=== PATIENT | female | born 1945 | race Two or more races ===

== ENCOUNTER 2017-11-11 11:50 | Emergency (ER) | payer OTHER ==
[~2017-11-11] VITALS: Ht 157.5 cm; Wt 86.2 kg
[~2017-11-11 11:50] MED LIST: CIPRO500 MG PO; FLAGYL500MG PO; FORTAMET500 MG; METFORMIN HCL500 M1 PO; SIMVASTATIN5 MG; SYNTHROID50 MCG PO; VASOTEC20 MG PO
== END 2017-11-11 16:01 | disposition home or self-care (01) ==
LOC: ER 11:50
DX: S40.011A Contusion of right shoulder, initial encounter (principal); S40.021A Contusion of right upper arm, initial encounter; W18.09XA Striking against other object with subsequent fall, initial encounter; Y93.89 Activity, other specified; Y92.488 Other paved roadways as the place of occurrence of the external cause; Y99.8 Other external cause status

== ENCOUNTER 2017-11-19 11:59 | Outpatient (CLI) | payer OTHER | END 2017-11-19 15:17 | disposition home or self-care (01) | LOC: MRI 11:59 | DX: M25.511 Pain in right shoulder (principal) | CPT/HCPCS: 73221 ==

== ENCOUNTER 2018-01-13 00:10 | Inpatient (IN) | payer OTHER ==
[~2018-01-13] VITALS: Ht 157.5 cm; Wt 87.5 kg
== END 2018-01-17 13:52 | disposition home or self-care (01) | DRG 390 ==
LOC: ER 00:10 → SURH 08:25 → SEC-K 08:25 → SURH 10:53
PROC: BW25ZZZ Computerized Tomography (CT Scan) of Chest, Abdomen and Pelvis (ICD-10-PCS; principal; 2018-01-13)
DX: K56.690 Other partial intestinal obstruction (principal); I10 Essential (primary) hypertension; E11.9 Type 2 diabetes mellitus without complications; E03.8 Other specified hypothyroidism; E86.0 Dehydration

== ENCOUNTER 2018-04-29 07:22 | Outpatient (CLI) | payer OTHER | END 2018-04-29 07:26 | disposition home or self-care (01) | LOC: RX STUDY 07:22 | DX: K56.699 Other intestinal obstruction unspecified as to partial versus complete obstruction (principal) ==

== ENCOUNTER → 2018-05-23 | Outpatient (CLI) | payer OTHER | END | disposition home or self-care (01) | LOC: NUCLEAR 09:00 | DX: M79.89 Other specified soft tissue disorders (principal) ==

== ENCOUNTER 2018-07-17 07:27 | Outpatient (CLI) | payer OTHER | END 2018-07-17 07:31 | disposition home or self-care (01) | LOC: TOM 07:27 | DX: R19.5 Other fecal abnormalities (principal); K63.5 Polyp of colon ==

== ENCOUNTER 2018-08-29 11:37 | Inpatient (IN) | payer OTHER ==
[~2018-08-29] VITALS: Ht 149.9 cm; Wt 88.0 kg
== END 2018-09-03 08:41 | disposition home or self-care (01) | DRG 392 ==
LOC: ER 11:37 → MEDJ 08-30 08:48
PROVIDERS: ADMIT Internal Medicine
DX: K57.32 Diverticulitis of large intestine without perforation or abscess without bleeding (principal); E78.00 Pure hypercholesterolemia, unspecified; E86.0 Dehydration; I10 Essential (primary) hypertension; G47.33 Obstructive sleep apnea (adult) (pediatric); E03.8 Other specified hypothyroidism; E11.9 Type 2 diabetes mellitus without complications; K29.60 Other gastritis without bleeding; K76.0 Fatty (change of) liver, not elsewhere classified

== ENCOUNTER 2019-01-26 14:12 | Outpatient (CLI) | payer OTHER | END 2019-01-26 14:14 | disposition home or self-care (01) | LOC: RAD 14:12 | DX: M54.2 Cervicalgia (principal); M54.6 Pain in thoracic spine ==

== ENCOUNTER 2019-02-23 13:23 | Outpatient (CLI) | payer OTHER | END 2019-02-23 13:27 | disposition home or self-care (01) | LOC: MAMO-SONO 13:23 | DX: Z12.31 Encounter for screening mammogram for malignant neoplasm of breast (principal); Z87.898 Personal history of other specified conditions ==

== ENCOUNTER 2019-02-23 14:08 | Outpatient (CLI) | payer OTHER | END 2019-02-23 17:00 | disposition home or self-care (01) | LOC: MRI 14:08 | DX: M54.12 Radiculopathy, cervical region (principal) | CPT/HCPCS: 72141 ==

== ENCOUNTER 2022-01-26 02:07 | Inpatient (IN) | payer OTHER ==
[~2022-01-26] VITALS: Ht 154.9 cm; Wt 86.2 kg
== END 2022-01-29 22:04 | disposition home or self-care (01) | DRG 392 ==
LOC: ER 02:07 → SEC-K 09:17 → MEDJ 09:17
PROVIDERS: ADMIT Internal Medicine; ATTEND Internal Medicine
PROC: BW21YZZ Computerized Tomography (CT Scan) of Abdomen and Pelvis using Other Contrast (ICD-10-PCS; principal; 2022-01-26)
DX: K57.32 Diverticulitis of large intestine without perforation or abscess without bleeding (principal); R10.32 Left lower quadrant pain; I10 Essential (primary) hypertension; E11.9 Type 2 diabetes mellitus without complications; Z79.4 Long term (current) use of insulin; E03.9 Hypothyroidism, unspecified

== ENCOUNTER 2022-10-16 09:57 | Outpatient (CLI) | payer OTHER | END 2022-10-16 10:07 | disposition home or self-care (01) | LOC: MAMO-SONO 09:57 | PROVIDERS: ATTEND Internal Medicine | DX: Z12.31 Encounter for screening mammogram for malignant neoplasm of breast (principal) ==

== ENCOUNTER 2022-10-16 10:55 | Outpatient (CLI) | payer OTHER | END 2022-10-16 10:56 | disposition home or self-care (01) | LOC: NUCLEAR 10:55 | PROVIDERS: ATTEND Internal Medicine | DX: M85.80 Other specified disorders of bone density and structure, unspecified site (principal) ==

== ENCOUNTER 2023-04-30 08:01 | Outpatient (CLI) | payer OTHER | END 2023-04-30 08:10 | disposition home or self-care (01) | LOC: SONOGRAMA 08:01 | PROVIDERS: ATTEND Internal Medicine Nephrology | DX: N13.8 Other obstructive and reflux uropathy (principal); I10 Essential (primary) hypertension; Z91.018 Allergy to other foods ==

== ENCOUNTER 2023-07-15 14:15 | Outpatient (CLI) | payer OTHER ==
[~2023-07-15 14:15] MED LIST changes: +SYNTHROID50 MCG; +VASOTEC20 MG
== END 2023-07-15 14:22 | disposition home or self-care (01) ==
LOC: MRI 14:15
DX: M25.561 Pain in right knee (principal)
CPT/HCPCS: 73718

== ENCOUNTER → 2023-07-23 09:10 | Outpatient (CLI) | payer OTHER | END | disposition home or self-care (01) | LOC: NUCLEAR 09:10 | PROVIDERS: ATTEND Internal Medicine | DX: M79.604 Pain in right leg (principal) ==

== ENCOUNTER 2023-12-27 14:27 | Outpatient (CLI) | payer OTHER ==
[~2023-12-27 14:27] MED LIST changes: +GABAPENTIN100 M2 PO
== END 2023-12-27 14:29 | disposition home or self-care (01) ==
LOC: RAD 14:27
PROVIDERS: ATTEND Physical Medicine & Rehabilitation
DX: M25.551 Pain in right hip (principal)

== ENCOUNTER 2024-01-08 12:42 | Outpatient (CLI) | payer OTHER | END 2024-01-08 12:58 | disposition home or self-care (01) | LOC: MRI 12:42 | PROVIDERS: ATTEND Physical Medicine & Rehabilitation | DX: M54.50 Low back pain, unspecified (principal) | CPT/HCPCS: 72148 ==

== ENCOUNTER → 2024-04-02 08:18 | Outpatient (CLI) | payer OTHER | END | disposition home or self-care (01) | LOC: NUCLEAR 08:18 | PROVIDERS: ATTEND Internal Medicine | DX: I87.2 Venous insufficiency (chronic) (peripheral) (principal); M79.605 Pain in left leg ==

== ENCOUNTER 2024-09-11 08:46 | Outpatient (CLI) | payer OTHER | END 2024-09-11 08:48 | disposition home or self-care (01) | LOC: TOM 08:46 | PROVIDERS: ATTEND Internal Medicine Gastroenterology | DX: K57.30 Diverticulosis of large intestine without perforation or abscess without bleeding (principal); K56.600 Partial intestinal obstruction, unspecified as to cause; Z86.0100 Personal history of colon polyps, unspecified ==

== ENCOUNTER → 2024-12-04 13:49 | Outpatient (CLI) | payer OTHER | END | disposition home or self-care (01) | LOC: RAD 13:49 | PROVIDERS: ATTEND Internal Medicine | DX: M54.9 Dorsalgia, unspecified (principal); M54.50 Low back pain, unspecified; M54.2 Cervicalgia ==

== ENCOUNTER 2024-12-08 12:10 | Outpatient (CLI) | payer OTHER | END 2024-12-08 12:17 | disposition home or self-care (01) | LOC: MAMO-SONO 12:10 | PROVIDERS: ATTEND Internal Medicine | DX: Z12.31 Encounter for screening mammogram for malignant neoplasm of breast (principal) ==

== ENCOUNTER 2024-12-28 11:10 | Outpatient (CLI) | payer OTHER | END 2024-12-28 11:12 | disposition home or self-care (01) | LOC: NUCLEAR 11:10 | PROVIDERS: ATTEND Internal Medicine | DX: M85.80 Other specified disorders of bone density and structure, unspecified site (principal); M81.0 Age-related osteoporosis without current pathological fracture ==